=== PATIENT | male | born 1990 | race Caucasian/White ===

== ENCOUNTER 2019-10-27 09:58 | Inpatient (IN) | payer SELFPAY ==
[2019-10-27] MEDS ORDERED: IBUPROFEN 600 MG TABLET PO ONE (10:22)
--- NOTE | 2019-10-27 10:28 | ER Document Report ---
ED Medical Screen (RME) - General Chief Complaint: Hand Injury Stated Complaint: HAND INJURY Time Seen by Provider: 10/27/19 10:18 Notes: Patient is a 29-year-old male presents emergency department with a chief complaint of left hand pain. Patient states that 3 days ago he hit his hand on a piece of wood. Patient has a history of cellulitis with an abscess, as per his medical record. Patient is right-handed. Exam: Patient unable to fully flex and extend digits of left hand. Edema noted to left hand. I have greeted and performed a rapid initial assessment of this patient. A comprehensive ED assessment and evaluation of the patient, analysis of test results and completion of medical decision making process will be conducted by an additional ED providers. TRAVEL OUTSIDE OF THE [place] IN LAST 30 DAYS: No - Related Data Allergies/Adverse Reactions: No Known Allergies Allergy (Verified 10/27/19 10:18) Home Medications: Zoloft Past Medical History - Social History Chew tobacco use (# tins/day): No Frequency of alcohol use: None Drug Abuse: None Family history: Reviewed not relevant - Immunizations Hx Diphtheria, Pertussis, Tetanus Vaccination: Yes Physical Exam - Vital signs Vitals: Temp 98.6 F 10/27/19 09:59 Course - Vital Signs Vital signs: Temp Pulse Resp BP Pulse Ox 98.6 F 102 H 16 138/74 H 99 10/27/19 10:09 10/27/19 10:09 10/27/19 10:09 10/27/19 10:09 10/27/19 10:09
--- NOTE | 2019-10-27 10:59 | RADIOLOGY REPORT (SQ) ---
EXAM DESCRIPTION: HAND LEFT 3 VIEWS IMAGES COMPLETED DATE/TIME: 10/27/2019 10:36 am REASON FOR STUDY: left hand contusion; swelling COMPARISON: None. EXAM PARAMETERS: NUMBER OF VIEWS: Three views. TECHNIQUE: AP, lateral and oblique radiographic images acquired of the left hand. LIMITATIONS: None. FINDINGS: MINERALIZATION: Normal. BONES: No acute fracture or dislocation. No worrisome bone lesions. JOINTS: No effusions. SOFT TISSUES: Dorsal swelling. No foreign body. OTHER: No other significant finding. IMPRESSION: Soft tissue injury. TECHNICAL DOCUMENTATION: JOB ID: [id number] 2010 [employer]- All Rights Reserved Reading location - IP/workstation name: [email or web address]
--- NOTE | 2019-10-27 11:09 | ER Document Report ---
ED Hand/Wrist Injury - General Chief Complaint: Hand Injury Stated Complaint: HAND INJURY Time Seen by Provider: 10/27/19 10:18 Mode of Arrival: Ambulatory Information source: Patient Notes: Patient states that he was using a shovel 3 days ago and accidentally hit his hand against a wall. Patient complains of increased swelling, pain and redness to the hand since then. Patient denies any fever. Patient states that he does have a history of MRSA in the past. Patient does acknowledge IV drug use in the distant past although none recently. TRAVEL OUTSIDE OF THE [place] IN LAST 30 DAYS: No - HPI Injury to: Hand Onset: Other - 3 days Timing: Worse Quality of pain: Achy Pain Level: 4 - Related Data Allergies/Adverse Reactions: No Known Allergies Allergy (Verified 10/27/19 10:18) Home Medications: Zoloft Past Medical History - General Information source: Patient - Social History Smoking Status: Never Smoker Chew tobacco use (# tins/day): No Frequency of alcohol use: None Drug Abuse: None Occupation: Construction Family History: Reviewed & Not Pertinent Patient has homicidal ideation: No Psychiatric Medical History: Reports: Hx Depression Surgical Hx: Negative - Immunizations Hx Diphtheria, Pertussis, Tetanus Vaccination: Yes Review of Systems - Review of Systems Constitutional: No symptoms reported. denies: Fever EENT: No symptoms reported Cardiovascular: No symptoms reported Respiratory: No symptoms reported Gastrointestinal: No symptoms reported. denies: Vomiting Genitourinary: No symptoms reported Male Genitourinary: No symptoms reported Musculoskeletal: Joint pain - Left hand swelling Skin: Other - Left hand erythema Hematologic/Lymphatic: No symptoms reported Neurological/Psychological: No symptoms reported Physical Exam - Vital signs Vitals: Temp 98.6 F 10/27/19 09:59 - General General appearance: Appears well, Alert In distress: None - Respiratory Respiratory status: No respiratory distress Chest status: Nontender Breath sounds: Normal. No: Rales, Rhonchi, Stridor, Wheezing Chest palpation: Normal - Cardiovascular Rhythm: Regular Heart sounds: S1 appreciated, S2 appreciated Murmur: No - Back Back: Normal, Nontender - Extremities General upper extremity: Tender - Left hand tenderness General lower extremity: Normal inspection, Normal ROM Shoulder: Normal, Nontender Arm: Normal, Nontender Elbow: Normal, Nontender Forearm: Normal, Nontender Wrist: Tender - Left wrist tenderness to dorsum with area of erythema and edema, Limited ROM - Secondary to tenderness. No: Abrasion, Deformity, Dislocation Hand: Tender - Left hand tenderness over the dorsum with 3+ edema, erythema, with calor, Abrasion - Old healing abrasion to the medial aspect of the left thumb and left second finger, No evidence of FB, Swelling. No: Deformity, Dislocation, Ecchymosis - Neurological Neuro grossly intact: Yes Cognition: Normal Orientation: AAOx4 [place] Coma Scale Eye Opening: Spontaneous [place] Coma Scale Verbal: Oriented [place] Coma Scale Motor: Obeys Commands [place] Coma Scale Total: 15 - Psychological Associated symptoms: Normal affect, Normal mood - Skin Skin Temperature: Warm Skin Moisture: Dry Skin Color: Erythema Irregularity with: Swelling, Tenderness, Warmth, Inflammation Course - Re-evaluation Re-evalutation: 10/27/19 11:[address] You regarding patient presentation. Dr. You agrees with plan for ultrasound and states that patient will likely need to be admitted to the medical services. He also recommends starting IV antibiotics such as vancomycin and Zosyn. 10/27/19 12:38 Dr. You advised of ultrasound findings worrisome for abscess. Dr. You recommends having patient admitted to medicine services and that he will likely put patient on the schedule for tomorrow. Consulted with hospitalist Dr. Turner who does agree to come and evaluate patient for admission. 10/27/19 14:[address] Turner who does plan to admit patient to medical floor at this time. - Vital Signs Vital signs: Temp Pulse Resp BP Pulse Ox 98.6 F 102 H 16 138/74 H 99 10/27/19 10:09 10/27/19 10:09 10/27/19 10:09 10/27/19 10:09 10/27/19 10:09 - Laboratory Result Diagrams: 10/27/19 11:08 10/27/19 11:08 Laboratory results interpreted by me: 10/27/19 10/27/19 11:08 11:08 RBC 4.19 L Hgb 12.2 L Hct 34.9 L Lymph % (Auto) 11.3 L Seg Neutrophils % 79.5 H Sodium 135.4 L Carbon Dioxide 32 H Labs- Entire Visit 10/27/19 10/27/19 10/27/19 11:08 11:08 11:15 WBC 9.1 RBC 4.19 L Hgb 12.2 L Hct 34.9 L MCV 83 MCH 29.2 MCHC 35.1 RDW 13.6 Plt Count 278 Lymph % (Auto) 11.3 L [place] % (Auto) 8.7 Eos % (Auto) 0.4 Baso % (Auto) 0.1 Absolute Neuts (auto) 7.2 Absolute Lymphs (auto) 1.0 Absolute Monos (auto) 0.8 Absolute Eos (auto) 0.0 Absolute Basos (auto) 0.0 Seg Neutrophils % 79.5 H Sodium 135.4 L Potassium 4.0 Chloride 98 Carbon Dioxide 32 H Anion Gap 5 BUN 11 Creatinine 0.67 Est GFR ( Amer) > 60 Est GFR (MDRD) Non-Af > 60 Glucose 100 Calcium 8.9 Total Bilirubin 0.8 Direct Bilirubin 0.0 Neonat Total Bilirubin Not Reportable Neonat Direct Bilirubin Not Reportable Neonat Indirect Bili Not Reportable AST 29 ALT 21 Alkaline Phosphatase 81 Total Protein 6.6 Albumin 3.7 Urine Color YELLOW Urine Appearance CLEAR Urine pH 6.0 Ur Specific [place] 1.012 Urine Protein NEGATIVE Urine Glucose (UA) NEGATIVE Urine Ketones NEGATIVE Urine Blood NEGATIVE Urine Nitrite NEGATIVE Urine Bilirubin NEGATIVE Urine Urobilinogen NEGATIVE Ur Leukocyte Esterase NEGATIVE Urine WBC (Auto) 0 Urine Mucus (Auto) RARE Urine Ascorbic Acid NEGATIVE - Diagnostic Test Radiology reviewed: Reports reviewed Discharge - Discharge Clinical Impression: Abscess of left hand, Cellulitis of hand, left Condition: Stable Disposition: ADMITTED INPATIENT Admitting Provider: Johnny (Hospitalist) Unit Admitted: Medical Floor
[2019-10-27 11:22] LABS: ABSOLUTE MONOCYTES (AUTO) 0.8 10^3/uL (0.1-1.4); ABSOLUTE NEUT (AUTO) 7.2 10^3/uL (1.7-8.2); BASOPHILS % (AUTO) 0.1 % (0-2); EOSINOPHILS % (AUTO) 0.4 % (0-6); HEMATOCRIT 34.9 % (37.9-51.0); HEMOGLOBIN 12.2 g/dL (13.5-17.0); LYMPHOCYTES % (AUTO) 11.3 % (13-45); MEAN CORPUSCULAR HEMOGLOBIN 29.2 pg (27.0-33.4); MEAN CORPUSCULAR HGB CONC 35.1 g/dL (32.0-36.0); MEAN CORPUSCULAR VOLUME 83 fl (80-97); MONOCYTES % (AUTO) 8.7 % (3-13); PLATELET COUNT 278 10^3/uL (150-450); RED BLOOD COUNT 4.19 10^6/uL (4.35-5.55); RED CELL DISTRIBUTION WIDTH 13.6 % (11.5-14.0); SEGMENTED NEUTROPHILS % (AUTO) 79.5 % (42-78); TOTAL CELLS COUNTED % (AUTO) 100 %; WHITE BLOOD COUNT 9.1 10^3/uL (4.0-10.5)
[2019-10-27 11:33] LABS: APPEARANCE,URINE CLEAR; BILIRUBIN,URINE NEGATIVE (NEGATIVE); COLOR,URINE YELLOW; GLUCOSE, URINE NEGATIVE (NEGATIVE); KETONES,URINE NEGATIVE (NEGATIVE); LEUKOCYTE ESTERASE,URINE NEGATIVE (NEGATIVE); NITRITE,URINE NEGATIVE (NEGATIVE); PROTEIN,URINE NEGATIVE (NEGATIVE); URINE SPECIFIC GRAVITY 1.012; UROBILINOGEN,URINE NEGATIVE mg/dL (<2.0)
[2019-10-27 11:37] LABS: ALBUMIN 3.7 g/dL (3.5-5.0); ALKALINE PHOSPHATASE 81 U/L (38-126); ANION GAP 5 (5-19); ASPARTATE AMINO TRANSFERASE 29 U/L (17-59); BILIRUBIN,TOTAL 0.8 mg/dL (0.2-1.3); BLOOD UREA NITROGEN 11 mg/dL (7-20); CALCIUM 8.9 mg/dL (8.4-10.2); CARBON DIOXIDE 32 mmol/L (22-30); CHLORIDE 98 mmol/L (98-107); GLUCOSE 100 mg/dL (75-110); TOTAL PROTEIN 6.6 g/dL (6.3-8.2)
[2019-10-27] MEDS ORDERED: PIPERACILLIN/TAZOBACTAM 3.375 GM VIAL IV ONE (11:52)
[2019-10-27] MEDS ORDERED: VANCOMYCIN HCL INJ 1000 MG VIAL IV ONE (11:53)
--- NOTE | 2019-10-27 12:26 | RADIOLOGY REPORT (SQ) ---
EXAM DESCRIPTION: U/S EXTREMITY NONVASCULAR LTD IMAGES COMPLETED DATE/TIME: 10/27/2019 12:03 pm REASON FOR STUDY: L hand/wrist swelling, ?abscess COMPARISON: None. TECHNIQUE: Dynamic and static grayscale images acquired of the localized site of clinical concern an d recorded on PACS. Additional selected color Doppler and spectral images recorded. SITE OF CONCERN: Left hand LIMITATIONS: None. FINDINGS: There is a 3.7 x 1.9 x 1.5 cm fluid collection at the level of the carpometacarpal joint. No internal flow on color Doppler. IMPRESSION: Abscess. TECHNICAL DOCUMENTATION: JOB ID: [id number] 2010 [employer]- All Rights Reserved Reading location - IP/workstation name: [email or web address]
[2019-10-27 13:02] LABS: URINE BARBITURATES SCREEN NEGATIVE; URINE BENZODIAZEPINES SCREEN NEGATIVE; URINE COCAINE SCREEN NEGATIVE; URINE MARIJUANA (THC) SCREEN NEGATIVE; URINE METHADONE SCREEN NEGATIVE; URINE PHENCYCLIDINE SCREEN NEGATIVE
[2019-10-27] MEDS ORDERED: VANCOMYCIN HCL 0 MG in DEXTROSE 5%-WATER 250 ML IV NR (15:15)
--- NOTE | 2019-10-27 15:23 | PDOC H&P ---
History of Present Illness History of Present Illness: WOLF MONTANA is a 29 year old male with no significant past medical history who said he was at work about 4 days ago and hit his hand against a wooden fence really hard while he was digging with a shovel. He said it started to swell up on him gradually over the past couple of days. He came in today because it was really swollen and he thought he had a fracture. He has not had any fevers. His labs were normal. [facility]. He denies any IV drug use. On ultrasound of his hand he had evidence of a rather large abscess. Orthopedics was consulted in the ER. Past Medical History Psychiatric Medical History: Reports: Depression Past Surgical History Past Surgical History: Reports: None Social History Smoking Status: Never Smoker Electronic Cigarette use?: No Family History Family History: Reviewed & Not Pertinent, Hyperlipidemia, Hypertension Parental Family History Reviewed: Yes Children Family History Reviewed: NA Sibling(s) Family History Reviewed.: Yes Medication/Allergy Home Medications: Sertraline HCl [Zoloft 50 mg Tablet] 50 mg PO DAILY 10/27/19 Allergies/Adverse Reactions: No Known Allergies Allergy (Verified 10/27/19 10:18) Review of Systems All systems: reviewed and no additional remarkable complaints except as stated - All systems were reviewed and were negative except as noted in the HPI Physical Exam Vital Signs: Temp Pulse Resp BP Pulse Ox 98.6 F 102 H 16 138/74 H 99 10/27/19 10:09 10/27/19 10:09 10/27/19 10:09 10/27/19 10:09 10/27/19 10:09 Intake & Output 10/26/19 10/27/19 10/28/19 06:59 06:59 06:59 Weight 77.6 kg General appearance: PRESENT: no acute distress, cooperative Head exam: PRESENT: atraumatic, normocephalic Eye exam: PRESENT: EOMI, PERRLA. ABSENT: conjunctival injection, nystagmus, scleral icterus Ear exam: PRESENT: normal external ear exam Mouth exam: PRESENT: moist, neck supple Throat exam: ABSENT: post pharyngeal erythema Neck exam: PRESENT: full ROM. ABSENT: carotid bruit, JVD, lymphadenopathy, meningismus, tenderness, thyromegaly Respiratory exam: PRESENT: clear to auscultation jocelyn, symmetrical, unlabored. ABSENT: accessory muscle use, chest wall tenderness, crackles, prolonged expiratory phas, retraction, rhonchi, tachypnea, wheezes Cardiovascular exam: PRESENT: RRR, +S1, +S2 Pulses: PRESENT: normal carotid pulses Vascular exam: PRESENT: normal capillary refill GI/Abdominal exam: PRESENT: normal bowel sounds, soft. ABSENT: distended, guarding, rebound, tenderness Extremities exam: ABSENT: clubbing, pedal edema Musculoskeletal exam: PRESENT: normal inspection. ABSENT: deformity Neurological exam: PRESENT: alert, awake, oriented to person, oriented to place, oriented to time, oriented to situation, CN II-XII grossly intact. ABSENT: motor sensory deficit Psychiatric exam: PRESENT: appropriate affect, normal mood Skin exam: PRESENT: other - Dorsal surface of his hand is erythematous, swollen, and tender, with fluctuance. No obvious inoculating injury. No sign of a bruise or abrasion Results Laboratory Results: 10/27/19 11:08 10/27/19 11:08 10/27/19 10/27/19 10/27/19 11:08 11:08 11:15 WBC 9.1 RBC 4.19 L Hgb 12.2 L Hct 34.9 L MCV 83 MCH 29.2 MCHC 35.1 RDW 13.6 Plt Count 278 Seg Neutrophils % 79.5 H Sodium 135.4 L Potassium 4.0 Chloride 98 Carbon Dioxide 32 H Anion Gap 5 BUN 11 Creatinine 0.67 Est GFR ( Amer) > 60 Glucose 100 Calcium 8.9 Total Bilirubin 0.8 AST 29 Alkaline Phosphatase 81 Total Protein 6.6 Albumin 3.7 Urine Color YELLOW Urine Appearance CLEAR Urine pH 6.0 Ur Specific [place] 1.012 Urine Protein NEGATIVE Urine Glucose (UA) NEGATIVE Urine Ketones NEGATIVE Urine Blood NEGATIVE Urine Nitrite NEGATIVE Ur Leukocyte Esterase NEGATIVE Urine WBC (Auto) 0 Impressions: Hand X-Ray 10/27/19 10:21 IMPRESSION: Soft tissue injury. Extremity Ultrasound 10/27/19 11:06 IMPRESSION: Abscess. Assessment and Plan - Diagnosis (1) Abscess of left hand Is this a current diagnosis for this admission?: Yes Plan: The ER said the patient had a history of IV drug use in the past but he denies it at this time. I could not see a definite puncture site on the hand, but the hand was not abraded or bruised or excoriated like one might expect from an impact injury the way the patient described. Nonetheless, he does have an abscess in his hand. Blood cultures have been obtained. Orthopedics has been consulted for incision and drainage. We will put him on broad-spectrum antibiotics and await culture results. - Time Time Spent with patient: 35 or more minutes - Inpatient Certification Based on my medical assessment, after consideration of the patient's comorbidities, presenting symptoms, or acuity I expect that the services needed warrant INPATIENT care.: Yes I certify that my determination is in accordance with my understanding of Medicare's requirements for reasonable and necessary INPATIENT services [42 CFR 412.3e].: Yes Medical Necessity: Need for IV Antibiotics, Need for Surgery, Risk of Complication if Not Cared For in Hospital
[2019-10-27] MEDS: PIPERACILLIN SODIUM/TAZOBACTAM 3.375 GM in NORMAL SALINE 100 ML IV SCH (17:29)
[2019-10-27] MEDS: VANCOMYCIN HCL 1,250 MG in DEXTROSE 5%-WATER 250 ML IV SCH (22:10)
[2019-10-28] MEDS: PIPERACILLIN SODIUM/TAZOBACTAM 3.375 GM in NORMAL SALINE 100 ML IV SCH ×5 (00:04→23:47)
[2019-10-28] MEDS: HYDROCODONE/ACETAMINOPHEN 10-325 MG TABLET PO PRN ×6 (00:04→23:47)
[2019-10-28 05:03] LABS: HEMATOCRIT 35.3 % (37.9-51.0); HEMOGLOBIN 12.3 g/dL (13.5-17.0); MEAN CORPUSCULAR HEMOGLOBIN 28.7 pg (27.0-33.4); MEAN CORPUSCULAR HGB CONC 34.8 g/dL (32.0-36.0); MEAN CORPUSCULAR VOLUME 82 fl (80-97); PLATELET COUNT 354 10^3/uL (150-450); RED BLOOD COUNT 4.28 10^6/uL (4.35-5.55); RED CELL DISTRIBUTION WIDTH 14.1 % (11.5-14.0); WHITE BLOOD COUNT 8.1 10^3/uL (4.0-10.5)
[2019-10-28] MEDS: VANCOMYCIN HCL 1,250 MG in DEXTROSE 5%-WATER 250 ML IV SCH ×2 (05:15→13:52)
[2019-10-28 05:23] LABS: ANION GAP 9 (5-19); BLOOD UREA NITROGEN 9 mg/dL (7-20); CALCIUM 8.9 mg/dL (8.4-10.2); CARBON DIOXIDE 28 mmol/L (22-30); CHLORIDE 98 mmol/L (98-107); GLUCOSE 111 mg/dL (75-110); POTASSIUM 3.9 mmol/L (3.6-5.0)
[2019-10-28] MEDS ORDERED: GLUCAGON,HUMAN RECOMB 1 MG INJ SUBCUT PRN (09:24)
[2019-10-28] MEDS ORDERED: DEXTROSE 50%-WATER 25 GM/50 ML DISP.SYRIN IV PRN ×2 (09:24)
[2019-10-28] MEDS ORDERED: DEXTROSE 40% GEL 15 GM TUBE PO PRN ×2 (09:24)
[2019-10-28] MEDS: SERTRALINE HCL 50 MG TABLET PO SCH (09:32)
--- NOTE | 2019-10-28 09:37 | PDOC PROGRESS REPORT ---
Subjective Progress Note for:: 10/28/19 Subjective:: Patient is still having significant left hand pain. Still with limited extension of the fingers. Reason For Visit: LEFT HAND ABSCESS Physical Exam Vital Signs: Temp Pulse Resp BP Pulse Ox 99.7 F 98 18 128/62 H 100 10/27/19 23:07 10/27/19 23:07 10/27/19 23:07 10/27/19 23:07 10/27/19 23:07 Intake & Output 10/27/19 10/28/19 10/29/19 06:59 06:59 06:59 Intake Total 1120 Balance 1120 Weight 74.6 kg General appearance: PRESENT: cooperative, mild distress, well-developed, well- nourished Head exam: PRESENT: atraumatic, normocephalic Ear exam: PRESENT: normal external ear exam. ABSENT: bleeding, drainage Mouth exam: PRESENT: moist, tongue midline Respiratory exam: PRESENT: clear to auscultation jocelyn, symmetrical, unlabored. ABSENT: accessory muscle use, prolonged expiratory phas, rales, rhonchi, tach ypnea, wheezes Cardiovascular exam: PRESENT: RRR, +S1, +S2, systolic murmur - 1/6 GI/Abdominal exam: PRESENT: normal bowel sounds, soft. ABSENT: distended, guarding, tenderness Rectal exam: PRESENT: deferred Gentrourinary exam: ABSENT: indwelling catheter Extremities exam: PRESENT: joint swelling - The dorsum of the left hand is markedly swollen. There is erythema. The swelling extends into the fingers as well as the wrist.. ABSENT: pedal edema Musculoskeletal exam: PRESENT: ambulatory Neurological exam: PRESENT: alert, awake, oriented to person, oriented to place, oriented to time, oriented to situation, CN II-XII grossly intact. ABSENT: altered, motor sensory deficit Psychiatric exam: PRESENT: flat affect. ABSENT: agitated, anxious Focused psych exam: ABSENT: delusional, paranoid, restlessness Skin exam: PRESENT: erythema - Dorsum left hand Results Laboratory Results: 10/28/19 04:38 10/28/19 04:38 10/27/19 10/27/19 10/27/19 11:08 11:08 11:15 WBC 9.1 RBC 4.19 L Hgb 12.2 L Hct 34.9 L MCV 83 MCH 29.2 MCHC 35.1 RDW 13.6 Plt Count 278 Seg Neutrophils % 79.5 H Sodium 135.4 L Potassium 4.0 Chloride 98 Carbon Dioxide 32 H Anion Gap 5 BUN 11 Creatinine 0.67 Est GFR ( Amer) > 60 Glucose 100 Calcium 8.9 Total Bilirubin 0.8 AST 29 Alkaline Phosphatase 81 Total Protein 6.6 Albumin 3.7 Urine Color YELLOW Urine Appearance CLEAR Urine pH 6.0 Ur Specific [place] 1.012 Urine Protein NEGATIVE Urine Glucose (UA) NEGATIVE Urine Ketones NEGATIVE Urine Blood NEGATIVE Urine Nitrite NEGATIVE Ur Leukocyte Esterase NEGATIVE Urine WBC (Auto) 0 10/28/19 10/28/19 04:38 04:38 WBC 8.1 RBC 4.28 L Hgb 12.3 L Hct 35.3 L MCV 82 MCH 28.7 MCHC 34.8 RDW 14.1 H Plt Count 354 Seg Neutrophils % Sodium 134.6 L Potassium 3.9 Chloride 98 Carbon Dioxide 28 Anion Gap 9 BUN 9 Creatinine 0.52 Est GFR ( Amer) > 60 Glucose 111 H Calcium 8.9 Total Bilirubin AST Alkaline Phosphatase Total Protein Albumin Urine Color Urine Appearance Urine pH Ur Specific [place] Urine Protein Urine Glucose (UA) Urine Ketones Urine Blood Urine Nitrite Ur Leukocyte Esterase Urine WBC (Auto) Impressions: Hand X-Ray 10/27/19 10:21 IMPRESSION: Soft tissue injury. Extremity Ultrasound 10/27/19 11:06 IMPRESSION: Abscess. Assessment and Plan - Diagnosis (1) Abscess of left hand Is this a current diagnosis for this admission?: Yes Plan: The ER said the patient had a history of IV drug use in the past but he denies it at this time. I could not see a definite puncture site on the hand, but the hand was not abraded or bruised or excoriated like one might expect from an impact injury the way the patient described. Nonetheless, he does have an abscess in his hand. Blood cultures have been obtained. Orthopedics has been consulted for incision and drainage. We will put him on broad-spectrum antibiotics and await culture results. 10/28/2019 We will continue vancomycin and Zosyn for the time being. He will likely go to the operating room later today. I did discuss this with Dr. You. If we can isolate a specific organism from the abscess then we will be able to narrow the spectrum of his antibiotic therapy. - Time Time Spent with patient: Less than 15 minutes Medications reviewed and adjusted accordingly: Yes Anticipated discharge: Home
[2019-10-28] MEDS ORDERED: FENTANYL CITRATE INJ/PF 100 MCG/2 ML AMPUL ONE (11:34)
[2019-10-28] MEDS ORDERED: ONDANSETRON HCL INJ/PF 4 MG/2 ML SDV ONE (11:34)
[2019-10-28] MEDS ORDERED: MIDAZOLAM 2 MG/2 ML INJ ONE ×2 (11:34→11:36)
[2019-10-28] MEDS ORDERED: HYDROMORPHONE HCL INJ/PF 2 MG/ML AMPULE ONE (11:35)
[2019-10-28] MEDS ORDERED: PROPOFOL INJ 200 MG/20 ML VIAL IV ONE (11:35)
[2019-10-28] MEDS ORDERED: LIDOCAINE 2% INJ-PF (20 MG/ML) 10 ML AMPUL ONE (11:40)
[2019-10-28] MEDS ORDERED: LIDOCAINE 2% INJ (20 MG/ML) 20 ML MDV ONE ×2 (11:58)
[2019-10-28] MEDS ORDERED: BUPIVACAINE HCL 0.25 % INJ/PF (2.5 MG/1 ML) 30 ML VIAL ONE (11:59)
[2019-10-28] MEDS ORDERED: LIDOCAINE 1% INJ-PF (10 MG/ML) 30 ML SDV ONE (11:59)
[2019-10-28] MEDS ORDERED: BACITRACIN INJ 50,000 UNIT VIAL ONE (12:00)
[2019-10-28] MEDS ORDERED: KETOROLAC TROMETHAMINE INJ/PF 30 MG/1 ML SDV ONE (12:00)
--- NOTE | 2019-10-28 12:11 | PDOC CONSULTATION ---
Consultation Consult Date: 10/28/19 Provider Consulted: JOSE DE SOUZA JR History of Present Illness Admission Date/PCP: 10/27/19 15:36 History of Present Illness: WOLF MONTANA is a 29 year old male with no significant past medical history aside from that of IV drug abuse. He reports potential injury to his hand deysi roximately 4 days ago when at work, striking his hand against a desk. After that he had increased soreness and swelling. He reported the emergency department expecting that there would be a potential fracture, however it appears more to be infectious. He denies any recognized bug bites or abrasion and denies recent injection of illicit drugs. He is not aware of any potential nidus. This point the whole dorsum of the hand is swollen which has been developing progressively and is led to difficulty using his hand for flexion and extension of the fingers. He does report burning pain that is up to a 8 out of 10 that is improved with rest and worse with activity. His attempted [id number] pain medication was not successful and he presented to the emergency department for further evaluation. Of note he was discharged from group home 2 months ago. Past Medical History Psychiatric Medical History: Reports: Depression Past Surgical History Past Surgical History: Reports: None Social History Smoking Status: Former Smoker Electronic Cigarette use?: No Frequency of Alcohol Use: None Hx Recreational Drug Use: No - There is some discrepancy in his reports between ED and hospitalist Hx Prescription Drug Abuse: No - Advance Directive Resuscitation Status: Full Code Family History Family History: Reviewed & Not Pertinent, Hyperlipidemia, Hypertension Parental Family History Reviewed: No Children Family History Reviewed: NA Sibling(s) Family History Reviewed.: NA Medication/Allergy Home Medications: Sertraline HCl [Zoloft 50 mg Tablet] 50 mg PO DAILY 10/27/19 Allergies/Adverse Reactions: No Known Allergies Allergy (Verified 10/27/19 10:18) Review of Systems Review of Systems: Constitutional: ABSENT: anorexia, chills, night sweats Cardiovascular: ABSENT: chest pain Respiratory: ABSENT: dyspnea Gastrointestinal: ABSENT: vomiting Genitourinary: ABSENT: dysuria Integumentary: ABSENT: rash Neurological: ABSENT: confusion, memory loss, numbness Psychiatric: ABSENT: hallucinations Hematologic/Lymphatic: ABSENT: easy bleeding All negative as above aside from that reported in the HPI and the following: No recent fevers chills, positive hand pain and swelling. Physical Exam Vital Signs: Temp Pulse Resp BP Pulse Ox 99.7 F 98 18 128/62 H 100 10/27/19 23:07 10/27/19 23:07 10/27/19 23:07 10/27/19 23:07 10/27/19 23:07 Intake & Output 10/27/19 10/28/19 10/29/19 06:59 06:59 06:59 Intake Total 1120 Balance 1120 Weight 74.6 kg Physical Exam: General appearance: PRESENT: no acute distress, cooperative, well-nourished Head exam: PRESENT: atraumatic, normocephalic Eye exam: PRESENT: EOMI Ear exam: PRESENT: normal external ear exam Mouth exam: PRESENT: neck supple Neck exam: ABSENT: tracheal deviation Respiratory exam: PRESENT: symmetrical, unlabored. ABSENT: accessory muscle use, wheezes Pulses: PRESENT: normal radial pulses, normal dorsalis pedis pulse Vascular exam: PRESENT: normal capillary refill GI/Abdominal exam: ABSENT: distended, firm Extremities exam: PRESENT: full ROM of bilateral shoulders, elbows wrists, knees, hips and ankles without pain Musculoskeletal exam: PRESENT: full ROM, normal inspection of all 4 extremities aside from that noted below. Neurological exam: PRESENT: alert, awake, oriented to person, oriented to place, oriented to time Psychiatric exam: PRESENT: appropriate affect. ABSENT: agitated Focused psych exam: ABSENT: catatonic Skin exam: PRESENT: intact. ABSENT: dry All as above aside from that noted in the HPI and the following: Left upper extremity with erythema from the PIP joint up to the wrist joint. There is additional swelling. Fluctuance is difficult to appreciate due to the severity of the soft tissue swelling on the dorsum of the hand. There is no overt nidus or skin abrasion as the potential source of the infection. There is a small laceration on the radial aspect of the index finger at the middle phalanx however this appears to be spared from infectious appearance. The left upper extremity is grossly sensation and motor intact. Pulses are 2+ distal capillary refill less than 2 seconds. There is not appear to be any volar involvement. Results Laboratory Results: 10/28/19 04:38 10/28/19 04:38 10/28/19 10/28/19 04:38 04:38 WBC 8.1 RBC 4.28 L Hgb 12.3 L Hct 35.3 L MCV 82 MCH 28.7 MCHC 34.8 RDW 14.1 H Plt Count 354 Sodium 134.6 L Potassium 3.9 Chloride 98 Carbon Dioxide 28 Anion Gap 9 BUN 9 Creatinine 0.52 Est GFR ( Amer) > 60 Glucose 111 H Calcium 8.9 Impressions: Hand X-Ray 10/27/19 10:21 IMPRESSION: Soft tissue injury. Extremity Ultrasound 10/27/19 11:06 IMPRESSION: Abscess. Assessment & Plan - Diagnosis (1) Abscess of left hand Is this a current diagnosis for this admission?: Yes Plan: Plan for left hand I&D today. Afterwards will need antibiotics tailored to intraoperative cultures. Encourage range of motion activity We will therapy occupational therapy Dressing change daily Twice daily dilute Betadine soaks for 20 minutes at a time.
--- NOTE | 2019-10-28 13:13 | Operative Report ---
Operative Report DATE OF SURGERY: 10/28/19 PREOPERATIVE DIAGNOSIS: Left hand abscess POSTOPERATIVE DIAGNOSIS: Left hand abscess OPERATION: Left hand incision and drainage SURGEON: JOSE DE SOUZA JR ANESTHESIA: Local TISSUE REMOVED OR ALTERED: Cultures COMPLICATIONS: None ESTIMATED BLOOD LOSS: 5 cc PROCEDURE: The patient was brought to the operating suite and laid supine on the operating table. Anesthesia had provided a block to the left upper extremity preoperatively. Zosyn was given preoperatively as per his continuous order. Ultrasound was used in order to evaluate the location of the abscess and mónica the skin. After this the left upper extremity was prepped and draped in standard sterile fashion. A timeout was performed. The patient still had some sensation in the left hand and further local was provided to the incision site. After this an Esmarch was applied in a tourniquet technique. (Pneumatic tourniquet was not used). An incision was made between the second and third metacarpal on the dorsum of the hand over the side of the located abscess. Bipolar was used to cauterize small vessels. Careful dissection was performed with Littler scissors in a spreading fashion. A subcutaneous void was encountered and a profuse amount of dishwater type fluid was expressed from the dorsum of the hand. There also appeared to be a moderate amount of edematous fluid that drained consistent with cellulitis. The wound was explored with blunt dissection followed by the introduction of a culture swab which again we utilized to explore the extent of the abscess borders. Very small amount of fibrinous, necrotic material was expressed. The majority of the fluid encountered at the end of the procedure and after trying to express as much as possible appeared to be edematous rather than abscess. The wound was then thoroughly irrigated with sterile saline. A light approximation of the wound w as made with a single horizontal mattress followed by a sterile dressing. The patient was brought to the PACU in stable condition.
[2019-10-28 14:32] LABS: VANCOMYCIN,TROUGH 5.6 ug/mL (5.0-20.0)
[2019-10-28] MEDS: VANCOMYCIN HCL 1,500 MG in DEXTROSE 5%-WATER 250 ML IV SCH (21:57)
[2019-10-29 05:16] LABS: HEMATOCRIT 36.4 % (37.9-51.0); HEMOGLOBIN 12.8 g/dL (13.5-17.0); MEAN CORPUSCULAR HEMOGLOBIN 28.9 pg (27.0-33.4); MEAN CORPUSCULAR HGB CONC 35.1 g/dL (32.0-36.0); MEAN CORPUSCULAR VOLUME 82 fl (80-97); PLATELET COUNT 322 10^3/uL (150-450); RED BLOOD COUNT 4.42 10^6/uL (4.35-5.55); RED CELL DISTRIBUTION WIDTH 13.9 % (11.5-14.0); WHITE BLOOD COUNT 8.1 10^3/uL (4.0-10.5)
[2019-10-29] MEDS: HYDROCODONE/ACETAMINOPHEN 10-325 MG TABLET PO PRN (05:32)
[2019-10-29] MEDS: PIPERACILLIN SODIUM/TAZOBACTAM 3.375 GM in NORMAL SALINE 100 ML IV SCH (05:33)
[2019-10-29] MEDS: VANCOMYCIN HCL 1,500 MG in DEXTROSE 5%-WATER 250 ML IV SCH (05:34)
[2019-10-29 05:39] LABS: ANION GAP 8 (5-19); BLOOD UREA NITROGEN 3 mg/dL (7-20); CALCIUM 9.3 mg/dL (8.4-10.2); CARBON DIOXIDE 28 mmol/L (22-30); CHLORIDE 100 mmol/L (98-107); GLUCOSE 111 mg/dL (75-110); POTASSIUM 3.8 mmol/L (3.6-5.0)
[2019-10-29] MEDS: SERTRALINE HCL 50 MG TABLET PO SCH (09:56)
--- NOTE | 2019-10-29 11:08 | PDOC DISCHARGE SUMMARY ---
Impression - Admit/DC Date/PCP Admission Date/Primary Care Provider: 10/27/19 15:36 Discharge Date: 10/29/19 - Discharge Diagnosis (1) Abscess of left hand Is this a current diagnosis for this admission?: Yes (2) Depression Is this a current diagnosis for this admission?: Yes - Additional Information Resuscitation Status: Full Code Discharge Diet: As Tolerated Discharge Activity: Activity As Tolerated, Other - Continue to open and close her left hand to maintain range of motion. Referrals: JOSE DE SOUZA JR, DO [ACTIVE PROVISIONAL STAFF] - 11/05/19 10:05 am (Please follow-up in 7 to 10 days) Prescriptions: Amoxicillin/Potassium Clav [Augmentin 875-125 Tablet] 1 tab PO Q12 10 Days #20 tablet Home Medications: Sertraline HCl [Zoloft 50 mg Tablet] 50 mg PO DAILY 10/27/19 Amoxicillin/Potassium Clav [Augmentin 875-125 Tablet] 1 tab PO Q12 10 Days #20 tablet 10/29/19 History of Present Illiness History of Present Illness: WOLF MONTANA is a 29 year old male with no significant past medical history who said he was at work about 4 days ago and hit his hand against a wooden fence really hard while he was digging with a shovel. He said it started to swell up on him gradually over the past couple of days. He came in today because it was really swollen and he thought he had a fracture. He has not had any fevers. His labs were normal. He was discharged from assisted 2 months ago. He denies any IV drug use. On ultrasound of his hand he had evidence of a rather large abscess. Orthopedics was consulted in the ER. Hospital Course Hospital Course: The patient had a relatively unremarkable hospital course. Yesterday he went to the operating room and Dr. De Souza opened the abscess. The patient tolerated the procedure without difficulty. He will discharge on oral antibiotic therapy and follow-up with Dr. De Souza next week. We discussed the importance of maintaining range of motion. Physical Exam Vital Signs: Temp Pulse Resp BP Pulse Ox 98.5 F 76 15 131/73 H 100 10/29/19 07:57 10/29/19 07:57 10/29/19 07:57 10/29/19 07:57 10/29/19 07:57 Intake & Output 0410/29/19 10/30/19 06:59 06:59 06:59 Intake Total 1120 1890 250 Output Total 505 Balance 1120 1385 250 Weight 74.6 kg 74.6 kg General appearance: PRESENT: no acute distress Head exam: PRESENT: atraumatic, normocephalic Respiratory exam: PRESENT: clear to auscultation jocelyn, symmetrical, unlabored. ABSENT: tachypnea, wheezes Cardiovascular exam: PRESENT: RRR, +S1, +S2 GI/Abdominal exam: PRESENT: normal bowel sounds, soft. ABSENT: tenderness Rectal exam: PRESENT: deferred Gentrourinary exam: ABSENT: indwelling catheter Extremities exam: PRESENT: other - Bulky dressing on the left hand. Right arm and legs unremarkable. Musculoskeletal exam: PRESENT: ambulatory, normal inspection Neurological exam: PRESENT: alert, awake, oriented to person, oriented to place, oriented to time, oriented to situation, CN II-XII grossly intact. ABSENT: altered, motor sensory deficit Psychiatric exam: PRESENT: appropriate affect. ABSENT: agitated, anxious Focused psych exam: ABSENT: delusional, paranoid, restlessness Skin exam: PRESENT: dry, normal color, warm. ABSENT: rash Results Laboratory Results: WBC 8.1 10^3/uL (4.0-10.5) 10/29/19 04:50 RBC 4.42 10^6/uL (4.35-5.55) 10/29/19 04:50 Hgb 12.8 g/dL (13.5-17.0) L 10/29/19 04:50 Hct 36.4 % (37.9-51.0) L 10/29/19 04:50 MCV 82 fl (80-97) 10/29/19 04:50 MCH 28.9 pg (27.0-33.4) 10/29/19 04:50 MCHC 35.1 g/dL (32.0-36.0) 10/29/19 04:50 RDW 13.9 % (11.5-14.0) 10/29/19 04:50 Plt Count 322 10^3/uL (150-450) 10/29/19 04:50 Lymph % (Auto) 11.3 % (13-45) L 10/27/19 11:08 Andrew % (Auto) 8.7 % (3-13) 10/27/19 11:08 Eos % (Auto) 0.4 % (0-6) 10/27/19 11:08 Baso % (Auto) 0.1 % (0-2) 10/27/19 11:08 Absolute Neuts (auto) 7.2 10^3/uL (1.7-8.2) 10/27/19 11:08 Absolute Lymphs (auto) 1.0 10^3/uL (0.5-4.7) 10/27/19 11:08 Absolute Monos (auto) 0.8 10^3/uL (0.1-1.4) 10/27/19 11:08 Absolute Eos (auto) 0.0 10^3/uL (0.0-0.6) 10/27/19 11:08 Absolute Basos (auto) 0.0 10^3/uL (0.0-0.2) 10/27/19 11:08 Seg Neutrophils % 79.5 % (42-78) H 10/27/19 11:08 Sodium 135.9 mmol/L (137-145) L 10/29/19 04:50 Potassium 3.8 mmol/L (3.6-5.0) 10/29/19 04:50 Chloride 100 mmol/L (98-107) 10/29/19 04:50 Carbon Dioxide 28 mmol/L (22-30) 10/29/19 04:50 Anion Gap 8 (5-19) 10/29/19 04:50 BUN 3 mg/dL (7-20) L 10/29/19 04:50 Creatinine 0.60 mg/dL (0.52-1.25) 10/29/19 04:50 Est GFR ( Amer) > 60 (>60) 10/29/19 04:50 Est GFR (MDRD) Non-Af > 60 (>60) 10/29/19 04:50 Glucose 111 mg/dL (75-110) H 10/29/19 04:50 POC Glucose 96 mg/dL (70-110) 10/28/19 11:01 Calcium 9.3 mg/dL (8.4-10.2) 10/29/19 04:50 Total Bilirubin 0.8 mg/dL (0.2-1.3) 10/27/19 11:08 Direct Bilirubin 0.0 mg/dL (0.0-0.4) 10/27/19 11:08 Neonat Total Bilirubin Not Reportable 10/27/19 11:08 Neonat Direct Bilirubin Not Reportable 10/27/19 11:08 Neonat Indirect Bili Not Reportable 10/27/19 11:08 AST 29 U/L (17-59) 10/27/19 11:08 ALT 21 U/L (<50) 10/27/19 11:08 Alkaline Phosphatase 81 U/L (38-126) 10/27/19 11:08 Total Protein 6.6 g/dL (6.3-8.2) 10/27/19 11:08 Albumin 3.7 g/dL (3.5-5.0) 10/27/19 11:08 Urine Color YELLOW 10/27/19 11:15 Urine Appearance CLEAR 10/27/19 11:15 Urine pH 6.0 (5.0-9.0) 10/27/19 11:15 Ur Specific [place] 1.012 10/27/19 11:15 Urine Protein NEGATIVE mg/dL (NEGATIVE) 10/27/19 11:15 Urine Glucose (UA) NEGATIVE mg/dL (NEGATIVE) 10/27/19 11:15 Urine Ketones NEGATIVE mg/dL (NEGATIVE) 10/27/19 11:15 Urine Blood NEGATIVE (NEGATIVE) 10/27/19 11:15 Urine Nitrite NEGATIVE (NEGATIVE) 10/27/19 11:15 Urine Bilirubin NEGATIVE (NEGATIVE) 10/27/19 11:15 Urine Urobilinogen NEGATIVE mg/dL (<2.0) 10/27/19 11:15 Ur Leukocyte Esterase NEGATIVE (NEGATIVE) 10/27/19 11:15 Urine WBC (Auto) 0 /HPF 10/27/19 11:15 Urine Mucus (Auto) RARE /LPF 10/27/19 11:15 Urine Ascorbic Acid NEGATIVE (NEGATIVE) 10/27/19 11:15 Time Trough Drawn 1345 10/28/19 13:45 Vancomycin Trough 5.6 ug/mL (5.0-20.0) 10/28/19 13:45 Urine Opiates Screen UNCONFIRMED POSITIVE 10/27/19 11:15 Urine Methadone Screen NEGATIVE 10/27/19 11:15 Ur Barbiturates Screen NEGATIVE 10/27/19 11:15 Ur Phencyclidine Scrn NEGATIVE 10/27/19 11:15 Ur Amphetamines Screen 10/27/19 11:15 U Benzodiazepines Scrn NEGATIVE 10/27/19 11:15 Urine Cocaine Screen NEGATIVE 10/27/19 11:15 U Marijuana (THC) Screen NEGATIVE 10/27/19 11:15 Impressions: Hand X-Ray 10/27/19 10:21 IMPRESSION: Soft tissue injury. Extremity Ultrasound 10/27/19 11:06 IMPRESSION: Abscess. Plan Health Concerns: Maintaining flexibility of right hand. Complete resolution of infection. Plan of Treatment: Outpatient antibiotic therapy and follow-up with orthopedic surgery Goals: Resolution of infection Time Spent: Less than 30 Minutes Stroke Is this a Stroke Patient?: No Acute Heart Failure - Is this a Heart Failure Patient?: No
--- NOTE | 2019-10-29 13:11 | PDOC PROGRESS REPORT ---
Subjective Progress Note for:: 10/29/19 Subjective:: Improvement in pain overnight. The patient reports improved swelling and ability to range his hand however he does still report pain with range of motion of his fingers. He did work with occupational therapy who counseled him on activities he should be performing at home. Reason For Visit: LEFT HAND ABSCESS Physical Exam Vital Signs: Temp Pulse Resp BP Pulse Ox 98.5 F 76 15 144/83 H 100 10/29/19 12:38 10/29/19 12:38 10/29/19 12:38 10/29/19 12:38 10/29/19 12:38 Intake & Output 10/28/19 10/29/19 10/30/19 06:59 06:59 06:59 Intake Total 1120 1890 250 Output Total 505 Balance 1120 1385 250 Weight 74.6 kg 74.6 kg Physical Exam: Left hand is grossly neurovascular intact, no drainage in the dressing. Capillary refill less than 2 seconds. Full range of motion of the hand and fingers and wrist with some pain to extremes. Resolution of erythema in comparison to yesterday's exam. Results Laboratory Results: 10/29/19 04:50 10/29/19 04:50 10/29/19 10/29/19 04:50 04:50 WBC 8.1 RBC 4.42 Hgb 12.8 L Hct 36.4 L MCV 82 MCH 28.9 MCHC 35.1 RDW 13.9 Plt Count 322 Sodium 135.9 L Potassium 3.8 Chloride 100 Carbon Dioxide 28 Anion Gap 8 BUN 3 L Creatinine 0.60 Est GFR ( Amer) > 60 Glucose 111 H Calcium 9.3 Impressions: Hand X-Ray 10/27/19 10:21 IMPRESSION: Soft tissue injury. Extremity Ultrasound 10/27/19 11:06 IMPRESSION: Abscess. Assessment & Plan - Diagnosis (1) Abscess of left hand Is this a current diagnosis for this admission?: Yes Plan: Status post I&D postop day 1. Cultures pending Will need to update antibiotics depending on culture results. Patient may go home in the interim and should follow-up with me closely within 1 week for continued monitoring of resolution. Dressing changes daily as needed. Antibiotics per primary provider Encourage range of motion of the hand and follow physical therapy guidelines. - Time Time Spent with patient: Less than 15 minutes
[2019-10-29 13:42] VITALS: BP 133/78
== END 2019-10-29 13:00 | disposition home or self-care (01) | DRG 603 ==
LOC: ER 09:58 → EH 15:36 → 4N 17:03
PROVIDERS: ADMIT Family Medicine; ATTEND Hospitalist
PROC: 0J9K3ZX Drainage of Left Hand Subcutaneous Tissue and Fascia, Percutaneous Approach, Diagnostic (ICD-10-PCS; principal; 2019-10-28 11:00)
DX: L02.512 Cutaneous abscess of left hand (principal); L03.114 Cellulitis of left upper limb; F32.9 Major depressive disorder, single episode, unspecified; W22.8XXA Striking against or struck by other objects, initial encounter; Y92.69 Other specified industrial and construction area as the place of occurrence of the external cause; Y99.0 Civilian activity done for income or pay; Z79.899 Other long term (current) drug therapy; Z87.891 Personal history of nicotine dependence; Z86.14 Personal history of Methicillin resistant Staphylococcus aureus infection
CPT/HCPCS: 00400; 36415; 76882; 80048; 80053; 80202; 80307; 81001; 82962; 85025; 85027; 87040; 87070; 87075; 87077; 87186; 87205; 96365; 96367; 99284; J1170; J1885; J2250; J2405; J2543; J2704; J3010; J3370; J3490; J7050; J7060